=== PATIENT | male | born 1955 ===

== ENCOUNTER 2019-07-18 15:10 | Emergency (ER) | payer BC ==
--- NOTE | 2019-07-18 15:37 | UC ---
Throat Pain/Nasal Marc HPI - HPI Summary HPI Summary: Patient presents to urgent care for evaluation of progressive sinus congestion discomfort for the last 6-7 days. Patient states initially it was in his frontal sinus. Patient states that subsequently has maxillary sinus. Patient with green secretions from his nose. Patient reports postnasal drip. Patient states his ears feel full and a "pop" patient's been taking Flonase 2 sprays each nostril daily. Patient also taking Motrin. Patient's been staying away from significant in the past. His blood pressure and his doctor said he should try Motrin first. Patient states he feels is not getting better has been having tactile temperatures. No chest pain or shortness of breath. No headache or vision changes. No abdominal pain. No vomiting. Patient's medications is entered in the MRI triage reviewed this visit. - History of Current Complaint Chief Complaint: UCRespiratory Stated Complaint: SINUS COMPLAINT Time Seen by Provider: 07/18/19 15:11 Hx Obtained From: Patient Pain Intensity: 10 - Allergies/Home Medications Allergies/Adverse Reactions: Allergies Allergy/AdvReac Type Severity Reaction Status Date / Time environmental Allergy Congestion Uncoded 07/18/19 15:31 Home Medications: Home Medications Dm/PE/Acetaminophen/Doxylamine [Vicks Dayquil/Nyquil Cold] 0.25 tab PO ONCE PRN 07/18/19 [History Confirmed 07/18/19] Ezetimibe 5 mg PO DAILY 07/18/19 [History Confirmed 07/18/19] Ibuprofen 600 mg PO ONCE PRN 07/18/19 [History Confirmed 07/18/19] PMH/Surg Hx/FS Hx/Imm Hx Previously Healthy: Yes Endocrine History: Dyslipidemia - Surgical History Surgical History: Yes Surgery Procedure, Year, and Place: cardiac stents placed. vericose veins left testicle - Family History Known Family History: Positive: Non-Contributory - Social History Occupation: Retired Lives: With Family Alcohol Use: Occasionally Substance Use Type: None Smoking Status (MU): Never Smoked Tobacco Review of Systems All Other Systems Reviewed And Are Negative: Yes Constitutional: Positive: Fever - Tactile Skin: Positive: Negative Eyes: Positive: Blurred Vision ENT: Positive: Ear Ache, Nasal Discharge, Sinus Congestion Respiratory: Positive: Negative Cardiovascular: Positive: Negative Gastrointestinal: Positive: Negative Genitourinary: Positive: Negative Physical Exam - Summary Physical Exam Summary: Vital Signs Reviewed: Yes A+Ox3, no distress Eyes: Conjunctiva Clear, IRENA. EOM intact and full ENT: Hearing grossly normal TM x 2 visualized, scant fluid left TM + turbinates inflammed and boggy, + PND, + TTP max sinuses L>R mmoist, uvula midline, no exudate, no erythema Neck: Positive: Supple Respiratory: Positive: No respiratory distress, No accessory muscle use + CTA throughout no w/r Cardiovascular: RRR nl s1, s2 no m/r CBT <2 sec abd soft + BS nt/nd no guarding, no distension Musculoskeletal Exam: WEBSTER x 4 without difficulty Strength Intact, ROM Intact Neurological: Positive: Alert, + sensation throughout Psychological: Positive: Normal Response To examiner Skin: Positive: no rash, no ecchymosis Triage Information Reviewed: Yes Vital Signs: Initial Vital Signs Temp 98.1 F 07/18/19 15:22 Pulse 88 07/18/19 15:22 Resp 18 07/18/19 15:22 BP 143/89 07/18/19 15:22 Pulse Ox 94 07/18/19 15:22 Throat Pain/Nasal Course/Dx - Course Course Of Treatment: Patient presents to urgent care or progressive pressure and green secretions last 6-7 days. Patient using Flonase and Zofran with mild improvement. Patient doesn't take decongestants because it causes an elevation of blood pressure. Patient's had sinus infections past this facility on exam blood pressure is mildly elevated. Patient advised to follow with PCP. Patient's exam consistent with rhinosinusitis. Will start patient on antibiotics. Discussed the patient's sedation precautions. Additionally I did explore the question regarding safety interaction with patient and his son-in-law as opposed at triage. Patient states he really has no intention or thoughts to hurt is normal. States he's to his daughter lives in [facility]. States they have a baby. States he's been trying to teach him hand skills but he was looking more of an IT technology job and patient states as an "old school [place]" he does understand this. States her good family dynamics and there is no plan or intention to injure. No concerns after my conversation. I did review the triage nurse was comfortable as well. - Differential Dx/Diagnosis Provider Diagnosis: Rhinosinusitis Discharge ED - Sign-Out/Discharge Documenting (check all that apply): Patient Departure All imaging exams completed and their final reports reviewed: No Studies - Discharge Plan Condition: Stable Disposition: HOME Prescriptions: Amoxicillin/Clavulanate TAB* [Augmentin TAB 875*] 875 mg PO BID #20 tab Patient Education Materials: Rhinosinusitis (ED) Referrals: [facility]ERR[facility] [Outside] No Primary Care Phys,NOPCP [Primary Care Provider] - Additional Instructions: - Stay well hydrated. Drink plenty of non-alcoholic, non-caffinated beverages. - Alternate ibuprofen (Advil, Motrin) 600mg and Tylenol every 3 hours for pain or fever. Take with food. Do NOT take for more than 4-5 days. - These infections are spread by secretions - do NOT share eating or drinking utensils - clean items you share with other people such as cell phones, computer mouse, TV remote, computer tablets,etc. Once you have been antibiotics for 2 days, change your toothbrush and your pillowcase. - get plenty of restful sleep - humidify the air in the room where you sleep - boil water, run a hot steam shower, vaporizer, cups of water by heat register - okay to take over the counter decongestant and cough medication - continue to take Flonase as prescribed. - contact your doctor or return with questions or concerns - Billing Disposition and Condition Condition: STABLE Disposition: Home
== END 2019-07-18 15:59 | disposition home or self-care (01) ==
LOC: UCEAST 15:10
DX: J32.9 Chronic sinusitis, unspecified (principal); R03.0 Elevated blood-pressure reading, without diagnosis of hypertension; H92.09 Otalgia, unspecified ear; H93.8X3 Other specified disorders of ear, bilateral; Z95.5 Presence of coronary angioplasty implant and graft; Z91.09 Other allergy status, other than to drugs and biological substances
CPT/HCPCS: 99202; G0463